=== PATIENT | male | born 1990 | race African-American/Black ===

== ENCOUNTER 2017-03-04 11:42 | Emergency (ER) | payer OTHER ==
[2015-07-25 12:59] VITALS: BP 131/86
[~2017-03-04 11:42] MED LIST: DICY10CA3 PO; METO25TA4 PO; OMEP10CA3 PO; OXYC1TAB7 PO; RANI150C PO
== END 2017-03-04 12:22 | disposition left against medical advice (07) ==
LOC: ER 11:42
DX: R10.9 Unspecified abdominal pain (principal); R11.10 Vomiting, unspecified; Z53.21 Procedure and treatment not carried out due to patient leaving prior to being seen by health care provider

== ENCOUNTER 2017-04-14 10:23 | Emergency (ER) | payer OTHER ==
[2017-04-14] MEDS ORDERED: DEXAMETHASONE SOD PHOS 20 MG/5 ML VIAL. IM ONE (10:45)
--- NOTE | 2017-04-14 10:48 | PHYS DOC ---
Past Medical History Past Medical History: No Pertinent History, Hypertension, Schizophrenia Additional Past Medical Histor: "my heart rate is diffrent than everyone else" Past Surgical History: No Surgical History Alcohol Use: None Drug Use: None Adult General Chief Complaint Chief Complaint: SORE THROAT HPI HPI Patient is a 26 year old male who presents with complaint of cough and sore throat. History was collected by patient's girlfriend as patient is currently refusing to speak due to his discomfort. It is reported the patient's had cough for the past 4 days. Patient awoke with sore throat this morning. Patient has been coughing up thick greenish phlegm and has been having streaks of blood in his mucus when he coughs. No reported fevers. Denies any significant health problems. Patient has not taken any medications to help with symptoms. No recent travel and no known sick contacts. Review of Systems Review of Systems Constitutional: Denies fever or chills [] Eyes: Denies change in visual acuity, redness, or eye pain [] HENT: Sore throat[] Respiratory: Cough[] Cardiovascular: Denies chest pain[] GI: Denies abdominal pain, nausea, vomiting, bloody stools or diarrhea [] : Denies dysuria or hematuria [] Musculoskeletal: Denies back pain or joint pain [] Integument: Denies rash or skin lesions [] Neurologic: Denies headache, focal weakness or sensory changes [] Current Medications Current Medications Current Medications Medications (Trade) Dose Ordered Sig/Vishnu Start Time Stop Time Status Last Admin Dose Admin Dexamethasone Sodium Phosphate (Decadron) 16 mg 1X ONCE 04/14/17 10:45 04/14/17 10:50 DC 04/14/17 10:52 16 MG Allergies Allergies Allergies Coded Allergies Type Severity Reaction Last Updated Verified No Known Drug Allergies 06/25/15 No Physical Exam Physical Exam Constitutional: Alert, afebrile, refuses to speak, follows commands. [] HENT: Normocephalic, atraumatic, bilateral external ears normal, oropharynx erythematous, friable pharyngeal mucosa, no oral exudates, nose normal. [] Eyes: PERRLA, EOMI, conjunctiva normal, no discharge. [] Neck: Normal range of motion, anterior cervical lymphadenopathy present, supple , no stridor. [] Cardiovascular:Heart rate regular rhythm, no murmur [] Lungs & Thorax: Bilateral breath sounds clear to auscultation [] Abdomen: Bowel sounds normal, soft, no tenderness, no masses, no pulsatile masses. [] Skin: Warm, dry, no erythema, no rash. [] Back: No tenderness, no CVA tenderness. [] Extremities: No tenderness, no cyanosis, no clubbing, ROM intact, no edema. [] Neurologic: Alert, follows commands but refuses to speak, normal motor function , normal sensory function, no focal deficits noted. [] Current Patient Data Vital Signs Vital Signs Date Time Temp Pulse Resp B/P (MAP) Pulse Ox O2 Delivery O2 Flow Rate FiO2 04/14/17 10:58 98.6 121 18 98 Room Air 98.6 Lab Values Laboratory Tests Test 04/14/17 10:46 Group A Streptococcus Rapid Negative (NEGATIVE) EKG EKG Not performed[] Radiology/Procedures Radiology/Procedures [address] [address] IMAGING REPORT Signed PATIENT: JOSE HOLDER ACCOUNT: [id number] : 1990 LOCATION: ER AGE: 26 SEX: M EXAM STATUS: REG ER ORD. PHYSICIAN: DOC CHENEY MD REASON: cough for 4 days PROCEDURE: NECK SOFT TISSUE AP and lateral soft tissue neck radiographs 04/14/2017 Clinical history: Cough and sore throat for 4 days. AP and lateral digital radiographs of the neck were obtained using soft tissue techniques. The epiglottis and aryepiglottic folds are within normal limits. No prevertebral soft tissue swelling is seen. The osseous structures are grossly intact. Impression: Negative study. DICTATED and SIGNED BY: GRZEGORZ LOFTON MD DATE: 04/14/171126 CC: DOC CHENEY MD; NO PCP ~ [place] [id number] IMAGING REPORT Signed PATIENT: JOSE HOLDER ACCOUNT: [id number] : 1990 LOCATION: ER AGE: 26 SEX: M EXAM STATUS: REG ER ORD. PHYSICIAN: DOC CHENEY MD REASON: cough for 4 days PROCEDURE: CHEST PA & LATERAL PA and lateral chest radiographs 04/14/2017. Clinical History: Cough and sore throat for 4 days. PA and lateral digital radiographs of the chest were obtained. Comparison study is dated 07/25/2015. The cardiac and mediastinal silhouettes are within normal limits in size and configuration. No pulmonary infiltrate is seen. No pleural effusion or pneumothorax is noted. Minimal S shaped curvature of the thoracolumbar spine is seen. Impression: No acute pulmonary infiltrate is seen. DICTATED and SIGNED BY: GRZEGORZ LOFTON MD DATE: 04/14/17 1125 CC: DOC CHENEY MD; NO PCP ~ [] Course & Med Decision Making Course & Med Decision Making Pertinent Labs and Imaging studies reviewed. (See chart for details) Rapid strep test was negative. X-rays negative. Patient's symptoms appear secondary to viral illness. Patient was treated with Decadron in the emergency department. Patient reports improvement in symptoms after treatment. Patient's symptoms likely consistent with viral upper respiratory infection. Patient will continue on Tylenol and Medrol Dosepak for outpatient treatment. Recommended follow-up with primary doctor in 2-3 days for reevaluation. Advised return emergency department for any worsening symptoms. Patient voiced understanding and in agreement with treatment plan. Dragon Disclaimer Dragon Disclaimer This electronic medical record was generated, in whole or in part, using a voice recognition dictation system. Departure Departure Impression: Primary Impression: Viral pharyngitis Additional Impression: Upper respiratory infection Disposition: 01 HOME, SELF-CARE Condition: IMPROVED Referrals: NO PCP (PCP) Patient Instructions: Upper Respiratory Infection, Adult, Viral Pharyngitis Additional Instructions: Follow-up with your primary doctor in 2-3 days for reevaluation. Return to emergency department for any worsening symptoms. Scripts Methylprednisolone (MEDROL) 4 Mg Tab.ds.pk 1 PKG PO UD, #1 PKG Prov: DOC CHENEY MD 04/14/17 Problem Qualifiers Additional Impression: Upper respiratory infection URI type: unspecified URI Qualified Codes: J06.9 - Acute upper respiratory infection, unspecified DOC CHENEY MD Apr 14, 2017 10:48
[2017-04-14 10:58] VITALS: BP 137/92
[2017-04-14 11:12] LABS: NEGATIVE OBC STREP NEG; POSITIVE OBC STREP POS
--- NOTE | 2017-04-14 11:28 | RAD ---
PA and lateral chest radiographs 04/14/2017. Clinical History: Cough and sore throat for 4 days. PA and lateral digital radiographs of the chest were obtained. Comparison study is dated 07/25/2015. The cardiac and mediastinal silhouettes are within normal limits in size and configuration. No pulmonary infiltrate is seen. No pleural effusion or pneumothorax is noted. Minimal S shaped curvature of the thoracolumbar spine is seen. Impression: No acute pulmonary infiltrate is seen.
--- NOTE | 2017-04-14 11:31 | RAD ---
AP and lateral soft tissue neck radiographs 04/14/2017 Clinical history: Cough and sore throat for 4 days. AP and lateral digital radiographs of the neck were obtained using soft tissue techniques. The epiglottis and aryepiglottic folds are within normal limits. No prevertebral soft tissue swelling is seen. The osseous structures are grossly intact. Impression: Negative study.
[2017-04-14] MEDS ORDERED: METH4TAB2 PO (11:40)
== END 2017-04-14 11:48 | disposition home or self-care (01) ==
LOC: ER 10:23
DX: J02.8 Acute pharyngitis due to other specified organisms (principal); B97.89 Other viral agents as the cause of diseases classified elsewhere; J06.9 Acute upper respiratory infection, unspecified; I10 Essential (primary) hypertension; F20.9 Schizophrenia, unspecified
CPT/HCPCS: 70360; 71020; 87070; 87880; 96372; 99285; J1100

== ENCOUNTER 2017-05-08 07:58 | Emergency (ER) | payer OTHER ==
[~2017-05-08] VITALS: Ht 165.1 cm; Wt 74.8 kg
[~2017-05-08 07:58] MED LIST changes: +METH4TAB2 PO
[2017-05-08] MEDS ORDERED: KETOROLAC 30 MG/ML INJ. IV ONE (08:15)
[2017-05-08] MEDS ORDERED: IV NORMAL SALINE 1000ML BAG 1,000 ML IV ONE (08:15)
[2017-05-08] MEDS ORDERED: FAMOTIDINE 20 MG/2 ML VIAL IVP ONE (08:15)
[2017-05-08] MEDS ORDERED: ONDANSETRON PF 4 MG/2 ML VIAL. IV ONE (08:15)
[2017-05-08 08:40] LABS: BASO % 0 % (0-3); EOS % 1 % (0-3); HEMATOCRIT 47.3 % (39.0-53.0); HEMOGLOBIN 16.4 g/dL (13.0-17.5); LYMPH # 0.2 x10^3/uL (1.0-4.8); LYMPH % 3 % (24-48); MEAN CORPUSCULAR HEMOGLOBIN 33 pg (25-35); MEAN CORPUSCULAR HGB CONC 35 g/dL (31-37); MEAN CORPUSCULAR VOLUME 94 fL (79-100); MONO % 6 % (0-9); NEUT % 91 % (31-73); PLATELET COUNT 249 x10^3/uL (140-400); RED BLOOD COUNT 5.05 x10^6/uL (4.30-5.70); RED CELL DISTRIBUTION WIDTH 13.3 % (11.5-14.5); WHITE BLOOD COUNT 8.4 x10^3/uL (4.0-11.0)
--- NOTE | 2017-05-08 08:47 | PHYS DOC ---
Past Medical History Past Medical History: No Pertinent History, Hypertension, Schizophrenia Additional Past Medical Histor: "my heart rate is diffrent than everyone else" Past Surgical History: No Surgical History Alcohol Use: None Drug Use: None Adult General Chief Complaint Chief Complaint: ABDOMINAL PAIN HPI HPI Patient is a 26 year old male with history of schizophrenia and hypertension who presents today with mild generalized abdominal pain and hematemesis that began this morning at 12:00 am. Patient denies any fever. Denies any diarrhea. Patient is also complaining of left flank pain. Patient denies any urgency frequency or dysuria though patient informed the nurse he has had penile discharge and is concerned about STDs. Denies any hematuria. Review of Systems Review of Systems Constitutional: Denies fever or chills [] Eyes: Denies change in visual acuity, redness, or eye pain [] HENT: Denies nasal congestion or sore throat [] Respiratory: Denies cough or shortness of breath [] Cardiovascular: No additional information not addressed in HPI [] GI: generalized abdominal pain, nausea, vomiting blood, denies bloody stools or diarrhea [] : Denies dysuria or hematuria [] Musculoskeletal: Denies back pain or joint pain [] Integument: Denies rash or skin lesions [] Neurologic: Denies headache, focal weakness or sensory changes [] Current Medications Current Medications Current Medications Medications (Trade) Dose Ordered Sig/Vishnu Start Time Stop Time Status Last Admin Dose Admin Azithromycin (Zithromax) 1,000 mg 1X ONCE 05/08/17 10:45 05/08/17 10:46 Ceftriaxone Sodium (Rocephin Im) 250 mg 1X ONCE 05/08/17 10:45 05/08/17 10:46 Famotidine (Pepcid) 20 mg 1X ONCE 05/08/17 09:00 05/08/17 09:01 DC 05/08/17 09:03 20 MG Ketorolac Tromethamine (Toradol) 30 mg 1X ONCE 05/08/17 08:15 05/08/17 08:16 Cancel Metronidazole (Flagyl) 2,000 mg 1X ONCE 05/08/17 10:45 05/08/17 10:46 Multi-Ingredient Mouthwash/Gargle (Gi Cocktail Single Dose) 15 ml 1X ONCE 05/08/17 09:00 05/08/17 09:01 DC 05/08/17 09:03 15 ML Ondansetron HCl (Zofran Odt) 4 mg 1X ONCE 05/08/17 09:00 05/08/17 09:01 DC 05/08/17 09:02 4 MG Ondansetron HCl (Zofran) 4 mg 1X ONCE 05/08/17 08:15 05/08/17 08:16 Cancel Sodium Chloride 1,000 ml @ 1,000 mls/hr 1X ONCE 05/08/17 08:15 05/08/17 09:14 DC Allergies Allergies Allergies Coded Allergies Type Severity Reaction Last Updated Verified No Known Drug Allergies 06/25/15 No Physical Exam Physical Exam Constitutional: Well developed, well nourished, no acute distress, non-toxic appearance. [] HENT: Normocephalic, atraumatic, bilateral external ears normal, oropharynx moist, no oral exudates, nose normal. [] Eyes: PERRLA, EOMI, conjunctiva normal, no discharge. [] Neck: Normal range of motion, no tenderness, supple, no stridor. [] Cardiovascular:Heart rate regular rhythm, no murmur [] Lungs & Thorax: Bilateral breath sounds clear to auscultation [] Abdomen: Rounded abdomen. Bowel sounds normal, soft, no tenderness, no masses, no pulsatile masses. [] Skin: Warm, dry, no erythema, no rash. [] Back: No tenderness, no CVA tenderness. [] Extremities: No tenderness, no cyanosis, no clubbing, ROM intact, no edema. [] Neurologic: Alert and oriented X 3, normal motor function, normal sensory function, no focal deficits noted. [] Psychologic: Affect normal, judgement normal, mood normal. [] Current Patient Data Vital Signs Vital Signs Date Time Temp Pulse Resp B/P (MAP) Pulse Ox O2 Delivery O2 Flow Rate FiO2 05/08/17 09:51 84 22 125/80 (95) 96 Room Air 05/08/17 08:00 98.1 98.1 Lab Values Laboratory Tests Test 05/08/17 08:10 05/08/17 09:40 White Blood Count 8.4 x10^3/uL (4.0-11.0) Red Blood Count 5.05 x10^6/uL (4.30-5.70) Hemoglobin 16.4 g/dL (13.0-17.5) Hematocrit 47.3 % (39.0-53.0) Mean Corpuscular Volume 94 fL (79-100) Mean Corpuscular Hemoglobin 33 pg (25-35) Mean Corpuscular Hemoglobin Concent 35 g/dL (31-37) Red Cell Distribution Width 13.3 % (11.5-14.5) Platelet Count 249 x10^3/uL (140-400) Neutrophils (%) (Auto) 91 % (31-73) H Lymphocytes (%) (Auto) 3 % (24-48) L Monocytes (%) (Auto) 6 % (0-9) Eosinophils (%) (Auto) 1 % (0-3) Basophils (%) (Auto) 0 % (0-3) Neutrophils # (Auto) 7.6 x10^3uL (1.8-7.7) Lymphocytes # (Auto) 0.2 x10^3/uL (1.0-4.8) L Monocytes # (Auto) 0.5 x10^3/uL (0.0-1.1) Eosinophils # (Auto) 0.1 x10^3/uL (0.0-0.7) Basophils # (Auto) 0.0 x10^3/uL (0.0-0.2) Platelet Estimate Pending Sodium Level 142 mmol/L (136-145) Potassium Level 4.3 mmol/L (3.5-5.1) Chloride Level 103 mmol/L (98-107) Carbon Dioxide Level 32 mmol/L (21-32) Anion Gap 7 (6-14) Blood Urea Nitrogen 14 mg/dL (8-26) Creatinine 1.3 mg/dL (0.7-1.3) Estimated GFR (Cockcroft-Gault) 80.7 BUN/Creatinine Ratio 11 (6-20) Glucose Level 105 mg/dL (70-99) H Calcium Level 8.8 mg/dL (8.5-10.1) Total Bilirubin 1.0 mg/dL (0.2-1.0) Aspartate Amino Transferase (AST) 24 U/L (15-37) Alanine Aminotransferase (ALT) 41 U/L (16-63) Alkaline Phosphatase 69 U/L (46-116) Total Protein 7.8 g/dL (6.4-8.2) Albumin 3.8 g/dL (3.4-5.0) Albumin/Globulin Ratio 1.0 (1.0-1.7) Lipase 121 U/L (73-393) Ethyl Alcohol Level < 10 mg/dL (0-10) Urine Collection Type Unknown Urine Color Yellow Urine Clarity Clear Urine pH 8.5 Urine Specific [place] 1.020 Urine Protein Negative mg/dL (NEG-TRACE) Urine Glucose (UA) Negative mg/dL (NEG) Urine Ketones (Stick) Negative mg/dL (NEG) Urine Blood Negative (NEG) Urine Nitrite Negative (NEG) Urine Bilirubin Negative (NEG) Urine Urobilinogen Dipstick 0.2 mg/dL (0.2 mg/dL) Urine Leukocyte Esterase Negative (NEG) Urine RBC 0 /HPF (0-2) Urine WBC 1-4 /HPF (0-4) Urine Squamous Epithelial Cells Occ /LPF Urine Bacteria 0 /HPF (0-FEW) Urine Mucus Mod /LPF Urine Opiates Screen Neg (NEG) Urine Methadone Screen Neg (NEG) Urine Barbiturates Neg (NEG) Urine Phencyclidine Screen Neg (NEG) Urine Amphetamine/Methamphetamine Neg (NEG) Urine Benzodiazepines Screen Neg (NEG) Urine Cocaine Screen Neg (NEG) Urine Cannabinoids Screen Neg (NEG) Urine Ethyl Alcohol Neg (NEG) Laboratory Tests 05/08/17 08:10 Laboratory Tests 05/08/17 08:10 EKG EKG [] Radiology/Procedures Radiology/Procedures [] Course & Med Decision Making Course & Med Decision Making Pertinent Labs and Imaging studies reviewed. (See chart for details) This is a 26-year-old male patient presented to the ED today with generalized abdominal pain hematemesis and flank pain that began this morning. Patient is also concerned about STDs would like to be tested and treated. Patient refused IV. CBC CMP lipase with no acute findings, urine analysis is negative for any acute findings. Patient was treated in the ED for STDs and given Rocephin Flagyl and azithromycin. Follow-up with GI doctor in one week. Educated on STDs and they need to use protection at all times. Discharged with Protonix. Patient is eating in the ED with no distress. Discharged with Compazine. Dragon Disclaimer Dragon Disclaimer This electronic medical record was generated, in whole or in part, using a voice recognition dictation system. Departure Departure Impression: Primary Impression: Concern about STD in male without diagnosis Additional Impressions: Hematemesis Abdominal pain Disposition: 01 HOME, SELF-CARE Condition: STABLE Referrals: NO PCP (PCP) MAGGY ST MD follow up in one week Patient Instructions: Abdominal Pain, Nausea and Vomiting, Sexually Transmitted Disease Additional Instructions: You were seen for abdominal pain and vomiting blood. Consider taking an antiacid every day eg protonix daily. Your were treated for STDs in the ED. Ensure you use protection at all times. Contact your partners and let them know you were treated for STDS and ask them to seek treatment too. Follow-up with the provided wire threader in the next 1 week. Come back to the ED if symptoms worsen. Scripts Prochlorperazine Maleate (Compazine) 10 Mg Tablet 10 MG PO Q8HRS, #30 TAB Prov: KENDRICK LARRY APRN 05/08/17 Omeprazole (OMEPRAZOLE) 20 Mg Capsule. 1 CAP PO DAILY, #30 CAP 5 Refills Prov: KENDRICK LARRY APRN 05/08/17 Problem Qualifiers Additional Impressions: Hematemesis Nausea presence: with nausea Qualified Codes: K92.0 - Hematemesis Abdominal pain Abdominal location: generalized Qualified Codes: R10.84 - Generalized abdominal pain KENDRICK LARRY APRN May 08, 2017 08:47
[2017-05-08 08:50] LABS: CALCIUM 8.8 mg/dL (8.5-10.1); CREATININE 1.3 mg/dL (0.7-1.3); GFR 80.7; POTASSIUM 4.3 mmol/L (3.5-5.1)
[2017-05-08 08:56] LABS: ALBUMIN 3.8 g/dL (3.4-5.0); TOTAL PROTEIN 7.8 g/dL (6.4-8.2)
[2017-05-08] MEDS ORDERED: FAMOTIDINE 20 MG TABLET. PO ONE (09:00)
[2017-05-08] MEDS ORDERED: LIDO:MAALOX:DONNATAL 1:1:1 15 ML SINGLE DOSE SWSW ONE (09:00)
[2017-05-08] MEDS ORDERED: ONDANSETRON ODT 4 MG TAB.RAPDIS. PO ONE (09:00)
--- NOTE | 2017-05-08 09:05 | RAD ---
CT of the abdomen and pelvis without contrast 05/08/2017 Indication: Left flank pain Comparison study: None Technique: Multidetector CT imaging of the abdomen and pelvis was performed without the administration of contrast. Discussion: Visualized lung bases demonstrate no acute abnormality. Evidence of prior granulomatous disease seen in the right lung base. Calcified granulomata are noted in the liver and spleen. The liver and spleen otherwise demonstrate a unremarkable noncontrast enhanced appearance. Gallbladder, adrenal glands, pancreas have an unremarkable noncontrast enhanced appearance. Bilateral kidneys are grossly unremarkable in appearance without evidence of hydronephrosis or nephrolithiasis. The ureters are grossly unremarkable in course and contour. No free fluid or free air is seen in the abdomen or pelvis. Limited visualization of the bowel demonstrates no obstruction or other gross abnormality. There is no evidence of appendicitis. No evidence of acute osseous abnormality is identified. Impression: No evidence of acute intra-abdominal abnormality is identified. No evidence of nephrolithiasis or acute obstructive uropathy is seen.
[2017-05-08 09:57] LABS: BARBITURATES NEG (NEG); BENZODIAZEPINES NEG (NEG); CANNABINOIDS NEG (NEG); COCAINE NEG (NEG); METHADONE NEG (NEG); OPIATES NEG (NEG); PHENCYCLIDINE NEG (NEG)
[2017-05-08 10:01] LABS: BILIRUBIN,URINE NEGATIVE (NEG); GLUCOSE,URINE NEGATIVE (NEG); NITRITE,URINE NEGATIVE (NEG); PH,URINE 8.5; PROTEIN,URINE NEGATIVE (NEG-TRACE); UROBILINOGEN,URINE 0.2 mg/dL (0.2 mg/dL)
[2017-05-08 10:15] LABS: BACTERIA,URINE 0 /HPF (0-FEW); RBC,URINE 0 /HPF (0-2); SQUAMOUS EPITHELIAL CELL,UR OCC /LPF
[2017-05-08] MEDS ORDERED: metroNIDAZOLE 500 MG TABLET PO ONE (10:45)
[2017-05-08] MEDS ORDERED: AZITHROMYCIN 250 MG TABLET. PO ONE (10:45)
[2017-05-08] MEDS ORDERED: cefTRIAXone IM 250 MG VIAL IM ONE (10:45)
[2017-05-08] MEDS ORDERED: OMEP20CA9 PO (10:49)
[2017-05-08] MEDS ORDERED: PROC10TA57 PO (10:49)
[2017-05-08 11:17] VITALS: BP 129/83
[2017-05-08 12:17] LABS: PLT ESTIMATE ADEQUATE (ADEQUATE)
== END 2017-05-08 11:16 | disposition home or self-care (01) ==
LOC: ER 07:58
DX: R10.84 Generalized abdominal pain (principal); K92.0 Hematemesis; I10 Essential (primary) hypertension; F20.9 Schizophrenia, unspecified
CPT/HCPCS: 36415; 74176; 80053; 80307; 81001; 83690; 85007; 85025; 87491; 87591; 96372; 99285; G0480; J0696; Q0144; Q0162; G0479

== ENCOUNTER 2017-08-28 15:26 | Emergency (ER) | payer OTHER ==
[2017-08-28] MEDS: ACETAMINOPHEN 500 MG TABLET PO ×2 (16:29)
== END 2017-08-28 16:30 | disposition home or self-care (01) ==
LOC: ER 15:26
DX: B34.9 Viral infection, unspecified (principal); I10 Essential (primary) hypertension
CPT/HCPCS: 99283

== ENCOUNTER 2018-05-17 16:58 | Emergency (ER) | payer OTHER ==
[2017-08-28 16:02] VITALS: BP 138/81
[~2018-05-17 16:58] MED LIST changes: +OMEP20CA9 PO; +OSEL75CA PO; +PROC10TA57 PO
== END 2018-05-17 17:09 | disposition left against medical advice (07) ==
LOC: ER 16:58
DX: T16.1XXA Foreign body in right ear, initial encounter (principal); Z53.21 Procedure and treatment not carried out due to patient leaving prior to being seen by health care provider; X58.XXXA Exposure to other specified factors, initial encounter; Y93.89 Activity, other specified; Y92.89 Other specified places as the place of occurrence of the external cause; Y99.8 Other external cause status